=== PATIENT | male | born 1955 | race Caucasian/White ===

== ENCOUNTER 2016-12-08 12:41 | Day surgery (SDC) | payer OTHER ==
[~2016-12-08] VITALS: Ht 172.7 cm; Wt 88.5 kg
[~2016-12-08 12:41] MED LIST: INSLIS SUBQ; INSU100V7 SUBQ; LIP40 PO; LISI-571 PO; METF500T4 PO; Sodium Biphos-Phos 133 mL Enema RECTAL PRN; Sodium Chloride LOK Flush 10 mL Syringe IV PRN; ZLP10T PO; fentaNYL-PF 50 mCg/mL 2 mL Inj IVPUSH PRN
[2016-12-08 13:14] VITALS: BP 126/76; PULSE 91; RESP 16; O2SAT 96
[2016-12-08] MEDS: 0.9% Sodium Chloride 1,000 ML IV SCH ×2 (13:22→14:16)
[2016-12-08 14:31] VITALS: BP 118/77; PULSE 84; O2SAT 97
[2016-12-08 14:41] VITALS: BP 113/62; PULSE 76; O2SAT 97
[2016-12-08 14:50] VITALS: BP 116/65; PULSE 75; O2SAT 96
--- NOTE | 2016-12-08 15:00 | ENDO ---
[address] [address] ENDOSCOPY PROCEDURE PATIENT: EDIL HENLEY : 1955 MR#: [id number] ADMIT: 12/08/2016 JOB ID: [id number] DATE: 12/08/2016 PRE-PROCEDURE DIAGNOSIS: Family history of colon cancer. POSTPROCEDURE DIAGNOSIS: Family history of colon cancer, sigmoid diverticulosis. PROCEDURE: Colonoscopy. ENDOSCOPIST: Dr. Juan Morris. INDICATIONS: The patient is a 61-year-old man who has a family history of colon cancer whose father at age 70. He previously underwent colonoscopy in 2008, and that procedure was normal with no polyps. At that point, he was recommended to undergo a repeat colonoscopy in seven years, which would have been in 2016. He has no abdominal pain, no unplanned weight loss, no blood in the stool, no change in bowel habits. After discussion of risks and benefits, he agreed to proceed with colonoscopy. MEDICATIONS: 1. Versed 5 mg. 2. Fentanyl 100 mcg. FINDINGS: There were a few scattered diverticula in the sigmoid colon. No other polyps or masses were identified. DESCRIPTION OF PROCEDURE: Procedural sedation was achieved. The patient was connected to hemodynamic monitoring, pulse oximetry, capnography. After digital rectal examination, the PCF H 180 AL colonoscope was inserted and passed under visualization until the appendiceal orifice and ileocecal valve were visualized and photo documented. The quality of the prep was fair. The scope was then carefully withdrawn and retroflexed in the rectum. There were a few scattered sigmoid diverticula, although the burden of diverticular disease was quite minimal. No polyps or masses were identified. Retroflexion was normal. The scope was withdrawn and the procedure was terminated. He tolerated the entire procedure well. RECOMMENDATIONS: Recommend next colonoscopy in 10 years unless he develops new symptoms.
== END 2016-12-08 23:59 | disposition home or self-care (01) ==
LOC: END 12:41
PROVIDERS: ATTEND Student in an Organized Health Care Education/Training Program
DX: Z12.11 Encounter for screening for malignant neoplasm of colon (principal); K57.30 Diverticulosis of large intestine without perforation or abscess without bleeding; I10 Essential (primary) hypertension; E11.9 Type 2 diabetes mellitus without complications; Z80.0 Family history of malignant neoplasm of digestive organs; Z88.0 Allergy status to penicillin; Z79.84 Long term (current) use of oral hypoglycemic drugs; Z79.899 Other long term (current) drug therapy
CPT/HCPCS: 45378; 99153; G0500; J2250; J3010; J7030